=== PATIENT | female | born 1950 | race Caucasian/White ===

== ENCOUNTER 2016-06-25 00:43 | Inpatient (IN) | payer OTHER ==
[~2016-06-25] VITALS: Ht 162.6 cm; Wt 58.9 kg
--- NOTE | 2016-06-26 07:39 | ER ---
ADMIT: 06/25/2016 RM/LOC: 405 [facility] MR#: [id number] [address] [place], [place] [address] JAZZYDONALDHAYLEE Ankit [address] [place] [address] Emergency Room Report SEX: F AGE: 65 : 1950 DATE: 06/25/2016 The patient is a 65-year-old female with past medical history of hypertension, cardiac stents, four, two of them were done two weeks ago in [place], who came to the ER with chief complaint of 3 days of shortness of breath and feeling tired and fatigued and intermittent left and mid anterior chest. The patient states she takes Plavix and aspirin and states the chest pain also was mild-to- moderate, at the moment, is going away. In the ER, the patient was put on monitor, vitals were stable, the patient had received two sublingual nitro, which decreased the pain and resolved it. Blood pressure slightly dropped from 125 systolic to 95 and the patient received small amount of IV normal saline. EKG was negative for any ST or T changes. Chest x-ray did not show any abnormalities. Lab work was positive for troponin I level of 11.7. INR was 1.2. Creatinine was also 0.9. The rest of the lab work was noncontributory. Family Medicine was consulted. The patient was admitted for chest pain/non STEMI. Cardiology Dr. Dupree was contacted and the patient per Cardiology was started on heparin drip and continuation of Plavix and aspirin. Samir Parr MD/ opal JOB #: [id number] CC: Traci Cid MD, Attending Physician Traci Cid MD, Family Physician
--- NOTE | 2016-06-30 08:32 | HP ---
ADMIT: 06/25/2016 RM/LOC: 405 [facility] MR#: [id number] [address] [facility] [address] [place], [place] [address] MICA PURCELL [address] [place] [address] History and Physical SEX: F AGE: 65 : 1950 DATE OF SERVICE: CHIEF COMPLAINT: Shortness of breath and fatigue. HISTORY OF PRESENT ILLNESS: Mica is a 65-year-old female with a history of coronary artery disease, who presented to the Emergency Department overnight last night for "feeling bad." She said she was extremely fatigued and had difficulty even walking. She has had a significant shortness of breath. She has had some chest and back discomfort and has difficulty just getting comfortable. Her past medical history is very significant for coronary artery disease. She had her first CT at the age of 51. She has been doing well since then until about one month ago. In mid May, she took a trip to [place] and said she did not feel well the entire trip. When she got home to [place], she asked her to take her to the hospital. Upon evaluation there, she was told that she had a heart attack and was recommended that she have a heart catheterization. This was performed, I believe on June 10 and she had 2 stents placed. Following that, her symptoms did not really improve. She was discharged, but a few days later re-presented to the Emergency Department complaining of nausea and symptoms. She was found to be in acute congestive heart failure and medications were adjusted. She was placed in a LifeVest and discharged. She drove back to [place] on June 17. She is from here but lives in [place] during the winter. During the trip, she said the LifeVest was very uncomfortable. She said it did alarm 2 times that it was going to fire, but she shut it off. Due to the discomfort of wearing this, she had it removed. She continued to feel very poorly and then yesterday presented to the local Emergency Department here. She gets her primary care in [place] when she is living here in [place]. She is a previous breast cancer survivor as well, but no other medical problems. PAST MEDICAL HISTORY: 1. Coronary artery disease. 2. Congestive heart failure. 3. Ischemic cardiomyopathy with findings of ventricular tachycardia during recent hospitalization and placement a LifeVest. 4. History of breast cancer. 5. Hypertension. 6. Hyperlipidemia. MEDICATIONS: 1. Atorvastatin 80 mg daily. 2. Lasix 20 mg daily. 3. Plavix 75 mg daily. 4. Potassium chloride 10 mEq daily. 5. Metoprolol 50 mg daily. 6. Aspirin 81 mg daily. ALLERGIES: BENADRYL, ERYTHROMYCIN, AND CODEINE. FAMILY HISTORY: Significant for coronary artery disease in her mother. ADMIT: 06/25/2016 RM/LOC: 405 [facility] MR#: [id number] [address] [address] MICA PURCELL [address] [place] [address] History and Physical SEX: F AGE: 65 : 1950 SOCIAL HISTORY: The patient is from [place], but lives 4 months of the year in [place]. She denies tobacco abuse. No alcohol abuse. She is . REVIEW OF SYSTEMS: As per HPI. Others reviewed and negative except for the patient reports decreased urination and is concerned with this given her Lasix use. She also reports a scratchy throat which she thinks is causing some wheezing, but this has been going on for greater than one month. PHYSICAL EXAMINATION: VITAL SIGNS: Currently with temperature 97.6, pulse 101, respiratory rate 16, blood pressure 95/64, and oxygen saturation 96% on room air. GENERAL: The patient is awake, alert, in mild distress due to discomfort as she fidgets in bed. She is otherwise cooperative with exam. HEENT: Within normal limits. HEART: Tachycardic but regular. Unable to appreciate any murmurs. LUNGS: Diminished throughout, but otherwise clear. No crackles or wheezes noted. ABDOMEN: Soft, nontender, and nondistended. Normal bowel sounds. No organomegaly. EXTREMITIES: Warm and dry. No edema. NEUROLOGIC: Cranial nerves II through XII grossly intact. No focal neurologic deficit. LABORATORY DATA: Please see electronic record for full details, but of note, the patient's INR on initial evaluation in the Emergency Department was 11.7. This is currently 10.3. Metabolic panel remarkable for creatinine of 0.9, magnesium 2.0, potassium 4.4. White blood cell count mildly elevated at 11.1 with a hemoglobin of 13.8, and platelets are normal at 3.74. IMAGING: Chest x-ray was obtained in the Emergency Department but has not yet been read by Radiology. EKG shows right bundle branch block with mild tachycardia of 106. ASSESSMENT/PLAN: 1. Chest pain concerning for acute coronary syndrome. Given medical history and elevated troponin, Cardiology has been consulted and she has been placed on heparin drip. Appreciate Cardiology's recommendations. ADMIT: 06/25/2016 RM/LOC: 405 [facility] MR#: [id number] [address] [place] [phone] MICA PURCELL [address] [place] [address] History and Physical SEX: F AGE: 65 : 1950 2. Significant coronary artery disease, status post recent PCI in the past 1 month. We will obtain previous records from her hospital in [place]. 3. Congestive heart failure. Currently she is euvolemic. Appreciate Cardiology's recommendations with this as well. 4. Generalized fatigue, likely secondary to above. We will also check a thyroid to ensure no other contributing comorbidities. 5. Hypertension. This is currently controlled. 6. Hyperlipidemia. We will continue her statin. 7. History of breast cancer. DISPOSITION: The patient requires inpatient cardiac evaluation. We will continue to follow along. Traci Cid MD/ opal JOB #: [id number] CC: Traci Cid, Attending Physician Traci Cid, Family Physician
--- NOTE | 2016-07-01 08:58 | DS ---
ADMIT: 06/25/2016 RM/LOC: 405 [facility] MR#: [id number] 26[address] [facility] [address] [place], [place] [address] RAMANDONALD VILLANUEVAHIE Ankit [address] [facility] [place] [place] [address] General Discharge Summary SEX: F AGE: 65 : 1950 ADMISSION DATE: 06/25/2016 DISCHARGE DATE: 06/25/2016 CONSULTS: Cardiology, Jayden Dupree MD PROCEDURES: None. REASON FOR ADMISSION: The patient was admitted from the emergency department as a city call patient for concern of acute coronary syndrome. Please see H and P for full details. HOSPITAL COURSE: The patient was admitted to telemetry for further evaluation and monitoring of her symptoms. She was kept n.p.o., and serial cardiac enzymes were obtained. Cardiology was consulted and evaluated the patient on the day of admission. She was initiated on heparin drip for concern of acute coronary syndrome. Once Cardiology evaluated the patient. There was significant concern for the severity of her cardiac disease. It was therefore recommended that she be transferred to the [facility] for further evaluation. The patient was stable and transferred on the morning of June 25. Traci Cid MD/ opal JOB #: [id number] CC: Traci Cid MD, Attending Physician Traci Cid MD, Family Physician
--- NOTE | 2016-07-11 14:23 | CO ---
ADMIT: 06/25/2016 RM/LOC: [facility] MR#: [id number] [id number] [address] HAYLEE PURCELL [address] [place] [address] Consultation SEX: F AGE: 65 : 1950 DATE OF CONSULTATION: 06/25/2016 ATTENDING PHYSICIAN: Traci Cid CONSULTING PHYSICIAN: Jayden Dupree MD PRIMARY REFERRING: Traci Cid MD REASON FOR EVALUATION: Elevated troponin. HISTORY OF PRESENT ILLNESS: Haylee is a very nice 65-year-old lady, who is known to me personally and professionally. 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 She does have a history of coronary artery disease with a previous stent to her right coronary artery 14 to 15 years ago in the midst of what I think was an acute coronary syndrome at that time. She has really done well over the past 15 years. She was in [place] this summer. She said she was very active. However at the end of May, she started developing rather severe shortness of breath along with nausea, generally not feeling well, maybe some atypical chest pain. She went to the emergency room there in [place]. After initial evaluation, she was found to have a troponin of 25. She was taken urgently to the cath lab radiological technologist. She was found to have what sounds like in-stent restenosis on the right requiring stenting and she also had stents to the LAD. She has an underlying right bundle-branch block. Her LV function was decreased to 25% to 30% in [place]. She was discharged on a life vest. I think she was discharged on June 12. She came back that same day with ongoing shortness of breath and nausea. I think they treated her with diuresis and they stopped her Brilinta and put her on Plavix because her main symptoms were shortness of breath. Her troponin at that time was 10. She subsequently went home and she has come back to [place]. She said she never really did recover, but over the past two days, she is having this recurrent shortness of breath, ongoing nausea. She has back pain from the Life Vest and generally not doing well. Once again, on her laboratory, her troponin remains elevated at 10. Her MB is 15 with a total CK of 98 and her troponin last night was 11.7. Kidney function is normal. She is not anemic. She is not hypoxic. She has minimal chest discomfort. She denies significant edema. She has not been having palpitations. Her main symptoms continue to be the shortness of breath, nausea, and just generally not feeling well. Her nausea is to the point where she has actually lost about 10 pounds over the past 2 weeks because she has difficulty eating. PAST MEDICAL HISTORY: ALLERGIES: TO CODEINE AND ALOE VERA. CURRENT MEDICATIONS: 1. Atorvastatin 80 daily. 2. Lasix 20 daily. 3. Clopidogrel 75 daily. 4. Potassium 10 mEq daily. ADMIT: 06/25/2016 RM/LOC: [facility] MR#: [id number] [address] [address] HAYLEE PURCELL [address] [place] [id number] Consultation SEX: F AGE: 65 : 1950 5. Metoprolol 50 mg daily. 6. Aspirin 81 daily. ILLNESSES: Include her coronary disease as described above. She has had stents to the right coronary artery and more recently to the repeat stents to the right coronary artery and LAD, history of breast cancer status post lumpectomy and dyslipidemia. She did have nonsustained ventricular tachycardia while she was in [place] and she now has an ischemic cardiomyopathy. PAST SURGICAL HISTORY: Includes two C sections, tonsillectomy, and a lumpectomy of the right breast many years ago. FAMILY HISTORY: Negative for premature coronary disease. Her mother from complications of diabetes. Her father had dementia and kidney cancer. Multiple siblings have hyperlipidemia. SOCIAL HISTORY: She has never smoked. She drinks coffee daily. Uses alcohol on a social basis. She tries to follow a sensible diet, but nothing specific. No history of illicit drug use. She is retired nurse. She is , but in another relationship and has 2 children. REVIEW OF SYSTEMS: GENERAL: She does tire easily and this has been going on for the past 2 weeks. She has recently lost 10 pounds. EYES: She wears reading glasses. ENT: Denies hearing loss or problems with nose, mouth or throat. PULMONARY: Denies cough, sputum production, asthma, emphysema or bronchitis. Denies snoring loudly, wakefulness at night, or fatigue upon awakening. GASTROINTESTINAL: Denies heartburn or difficulty swallowing. No change in bowel habits. Denies dark or bloody stools. No history of ulcers, hiatal hernia, or gallbladder or liver disease. She has had recent nausea and difficulty eating. GENITOURINARY: Denies dysuria, hematuria, nocturia, urinary tract infection, or kidney stones. Denies history of renal insufficiency or failure. MUSCULOSKELETAL: Denies history of arthritis or gout. Denies muscle or joint pains. ENDOCRINE: Denies history of thyroid dysfunction or diabetes. HEMATOLOGIC: Positive for her history of breast cancer. NEUROLOGIC: Denies chronic headaches, dizziness, syncope, stroke, seizures or numbness or tingling. PSYCHIATRIC: Denies history of mental illness or feelings of depression. PHYSICAL EXAMINATION: VITAL SIGNS: Blood pressure is 95/64, pulse is 100, respirations 16. She is afebrile. O2 sats are 96% on room air. SKIN: [place], warm and dry. EYES: Sclerae clear. No xanthelasmas. ENT: Oral mucosa is pink and moist. There is positive JVD. No carotid bruits. ADMIT: 06/25/2016 RM/LOC: [facility] MR#: [id number] [address] [address] HAYLEE PURCELL [facility] [place] [address] Consultation SEX: F AGE: 65 : 1950 CHEST: Respirations are even and unlabored. Lungs are clear to auscultation. HEART: Regular rate and rhythm. Normal S1, S2. There is a gallop noted, but it is regular. No significant murmurs or rubs. ABDOMEN: Soft and nontender. MUSCULOSKELETAL: Gait is normal. EXTREMITIES: Peripheral pulses palpable. No clubbing, cyanosis or edema. PSYCHIATRIC: Alert and oriented. Mood and affect are appropriate. IMAGING DATA: Her EKG shows an underlying right bundle-branch block, mildly tachycardic. I do not see any acute ischemic EKG changes. LABORATORY DATA: Sodium 135, potassium 4.4, creatinine 0.9, BUN 17, troponin is 10.3, CK is 98, MB is 15, INR is 1.2, hemoglobin is 13.8 with a white count of 11.1, and platelet count 374,000. IMPRESSION: 1. Possible acute coronary syndrome/non-ST elevation myocardial infarction. 2. Known coronary artery disease with recent stents to the right coronary artery and LAD. 3. Ischemic cardiomyopathy. 4. Nonsustained ventricular tachycardia. 5. Acute congestive heart failure, systolic. RECOMMENDATIONS: She is markedly symptomatic again. I am not sure she has ever improved since her initial presentation in [place] over two weeks ago. Her troponin remains elevated. I am concerned about a recurrent acute coronary syndrome. It is not clear to me if this is mostly shortness of breath due to heart failure or complicated by possible recurrent acute coronary syndrome. She also had nonsustained VT and her LV function is depressed. She has high risk features. Ultimately, I think it is best if she is transferred to the [facility] for consideration of another coronary angiography. I would be concerned about stent thrombosis. In addition, I am also concerned about heart failure symptoms and needing to optimize her heart failure management. She may well need some LV support. I discussed this with my partners in [place] and they are in agreement to transfer her there for thorough and full evaluation. We will continue with her heparin and beta- venancio. I have not given her Lasix. She will also remain on her dual antiplatelet therapy. Jayden Dupree MD/ opal JOB #: [id number] CC: Traci Cid, Attending Physician Traci Cid, Family Physician
== END 2016-06-25 10:45 | disposition short-term general hospital (02) | DRG 280 ==
LOC: ER 00:43 → 4PCU 02:30
PROVIDERS: ADMIT Family Medicine
DX: I21.4 Non-ST elevation (NSTEMI) myocardial infarction (principal); I50.21 Acute systolic (congestive) heart failure; I47.2 Ventricular tachycardia; I25.10 Atherosclerotic heart disease of native coronary artery without angina pectoris; I25.2 Old myocardial infarction; I25.5 Ischemic cardiomyopathy; I11.0 Hypertensive heart disease with heart failure; E78.5 Hyperlipidemia, unspecified; I45.10 Unspecified right bundle-branch block; Z79.02 Long term (current) use of antithrombotics/antiplatelets; Z95.5 Presence of coronary angioplasty implant and graft; Z85.3 Personal history of malignant neoplasm of breast; Z82.49 Family history of ischemic heart disease and other diseases of the circulatory system; Z79.82 Long term (current) use of aspirin

== ENCOUNTER 2016-07-02 19:25 | Inpatient (IN) | payer OTHER ==
[~2016-07-02] VITALS: Ht 167.6 cm; Wt 59.5 kg
--- NOTE | 2016-07-03 03:28 | ER ---
ADMIT: 07/02/2016 RM/LOC: 427 [facility] MR#: [id number] [address] [facility] [address] [place], [place] [address] ROMAINE PURCELL [address] [place] [address] Emergency Room Report SEX: F AGE: 65 : 1950 DATE: 07/02/2016 CHIEF COMPLAINT: LifeVest alarm. HISTORY OF PRESENT ILLNESS: The patient is a 65-year-old female with ischemic cardiomyopathy, recent non-ST elevated [place] in may 27 status post PCI stent x2 in [place] followed by hospitalization at [place] first of the month, transferred to [facility] for further evaluation. Heart cath showed no significant abnormality with recent stents, did find localized probable viral cardiomyopathy, placed on balloon pump transiently and discharged 2 days ago. Since being home, she has had increased nausea with protracted vomiting today. Denies any hematemesis, fevers, chills, cough, diarrhea, or hematochezia. Does admit to recent UTI, currently on antibiotics. No prior history of GI bleed or transfusions. Transported [facility] by [facility] with no further LifeVest alarms. PAST MEDICAL HISTORY: ILLNESSES: Recent non-ST elevated [place] in May 2016 followed by PCI stent x2 in [place], CHF with blunted EF recently, ventricular tachycardia requiring LifeVest since May 2016, hypertension, hyperlipidemia, breast cancer, hypokalemia, and alcohol abuse. OPERATIONS: Recent heart catheterization in [facility] with no interventions since May 2016 at outside hospital in [place], PCI stent x2, total x4, tonsillectomy, right lumpectomy, and x2. ALLERGIES: CODEINE, ERYTHROMYCIN, AND ALOE VERA. MEDICATIONS: Please see nurse's MAR. 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 Nonsmoker. FAMILY HISTORY: Mother secondary to diabetes. Father secondary to renal cell carcinoma and dementia. Siblings with hyperlipidemia. REVIEW OF SYSTEMS: A 12-point review of systems negative for all other systems, illnesses, or operations except as outlined above. PHYSICAL EXAMINATION: VITAL SIGNS: Temp 98, pulse 110, respirations 14, BP 106/71, SaO2 of 97% on room air, and weight 52.5 kilos. GENERAL: Anxious, moderate distress, nontoxic, nondiaphoretic. HEENT: Normocephalic. No evidence of epistaxis, rhinorrhea, or otorrhea. NECK: Supple without lymphadenopathy or thyromegaly. CHEST: Clear. Breath sounds equal without rales, rhonchi, or wheeze. HEART: Tachycardic, regular without murmur, gallop, or edema. ABDOMEN: Soft, nontender, nondistended without mass or megaly. Bowel sounds hypoactive. ADMIT: 07/02/2016 RM/LOC: 427 [facility] MR#: [id number] [address] [place] [phone] ROMAINE PURCELL [address] [place] [address] Emergency Room Report SEX: F AGE: 65 : 1950 BACK: Erect. No CVA tenderness. RECTAL: Sphincter intact. Hematest negative. EXTREMITIES: No evidence of Homans sign, synovitis, or dermatitis. NEURO: EOMI, PERRLA. No evidence of drift, dysarthria, or ataxia. Gait not assessed. MENTAL STATUS: Alert, oriented, and cooperative without delusions, hallucinations, or abnormal thought content. MEDICAL DECISION MAKING: The patient had no further alarms. Heart rate remained less than 100 with fluid bolus in ED. The patient did receive Zofran 8 mg IV push with no improvement of nausea then received Reglan 5 mg IV push with improvement then GI cocktail with relief of substernal burning. Hemoglobin 11.1 down from 13.8 on June 25. Lactic 2.4, magnesium 1.7, creatinine 1.3, sodium 131, potassium 3.5, troponin 5.080 down from 10. Last week INR 1.26. EKG showed sinus rhythm with ectopic atrial complex right bundle-branch block, unchanged from June 25, 2016. Chest x-ray showed cardiomegaly without failure. Discussed findings and disposition with Dr. Kwan, who agreed and evaluated and wrote orders in department. Notified Dr. Powers of consult, who agrees with plan and will see in morning. DIAGNOSES: 1. Ischemic cardiomyopathy, status post recent non-ST elevated myocardial infarction and percutaneous coronary intervention stent as well as an aortic balloon pump for probable viral cardiomyopathy. 2. Breast cancer status post lumpectomy, chemoradiation remote past. 3. Elevated lactic acid. Screens positive for sepsis and sepsis protocol drawn. RECOMMENDATION: Admit to inpatient PCU for Dr. Kwan and . ADMISSION/DISCHARGE CONDITION: Stable. The patient is a full code. Robbie Capellan MD/ opal JOB #: [id number] CC: Best Kwan MD, Attending Physician Meagan Lu APRN, Family Physician SAYDA Hines MD Isaac J Berg, MD
--- NOTE | 2016-07-05 10:18 | HP ---
ADMIT: 07/02/2016 RM/LOC: 427 [facility] MR#: [id number] [address] [facility] [address] [place], [place] [address] ROMAINE PURCELL [address] [place] [address] History and Physical SEX: F AGE: 65 : 1950 DATE OF SERVICE: CHIEF COMPLAINT: Nausea. HISTORY OF PRESENT ILLNESS: The patient is a 65-year-old female, who has had a rather interesting last couple of months. Has a distant history of coronary artery disease with stent in the right coronary about 14 years ago or so. A couple of months ago started having shortness of breath, overall not feeling well down in [place]. Had non-STEMI. Had in-stent thrombosis. It sounds like from the record that she then had an LAD stent placed. She was in here a week ago. Had overall feelings of not feeling well. Concern is for in-stent thrombosis. Sent down to [facility]. She had repeat left heart catheterization. Intra-aortic balloon pump. Just left the hospital there two days ago. Significant heart failure. She reports an EF of 10%. Has had persistent nausea and just overall not feeling well for the last couple of months. Her nausea is much worse now. Dry heaves and retching frequently. Very poor oral intake. She has lost 10 pounds from her small frame in rather short orders within the last few weeks. No fevers. No chills. Bowel and bladder have otherwise been working okay. She got a UTI while she was in the hospital there and she initially was treated with Cipro, but was resistance so now she is finishing a course of Bactrim. Denies any rashes. Historically, has not been one to really suffer from nausea or vomiting very easily in the past. The patient was brought to the emergency room today due to her LifeVest alarming seven times. She turned it off before it would shock her. Did not ever actually go off. She was having tachycardia at the time. Instructed to come to the ER. PAST MEDICAL HISTORY: 1. Systolic heart failure with an EF of 10%, question viral cardiomyopathy according to the patient. 2. Coronary artery disease, status post stenting. 3. Distant history of breast cancer in her 30s. 4. History of histoplasmosis in her 20s requiring hospitalization. PAST SURGICAL HISTORY: C-sections and tonsillectomy. FAMILY HISTORY: Negative for premature coronary artery disease, but she has got seven siblings all with hyperlipidemia. Mother had diabetes. SOCIAL HISTORY: Nonsmoker. Retired nurse. REVIEW OF SYSTEMS: As per HPI. Otherwise, completely reviewed and negative. MEDICATIONS: She is on: 1. Milrinone drip via left-sided PICC line. 2. Aspirin 81 mg a day. 3. Atorvastatin 80 mg at bedtime. 4. Plavix 75 mg a day. ADMIT: 07/02/2016 RM/LOC: 427 [facility] MR#: [id number] [address] [place] [phone] ROMAINE PURCELL [address] [place] [address] History and Physical SEX: F AGE: 65 : 1950 5. Ivabradine. 6. Metoprolol. 7. Midodrine. 8. Zofran p.r.n. 9. Bactrim. 10.Torsemide. PHYSICAL EXAMINATION: VITAL SIGNS: Blood pressure 113/94, pulse is 101, respiratory rate 20, and O2 saturation 99%. GENERAL: Alert and oriented x3. No acute distress. Somewhat ill appearing. Sallow. Family at bedside. HEENT: Normocephalic and atraumatic. Pupils are equal bilaterally. No icterus. Dry mucous membranes. NECK: No lymphadenopathy. Soft and supple. Trachea midline. LUNGS: Clear to auscultation bilaterally. No wheezes, rales, or rhonchi. HEART: Regular rate and rhythm. No murmurs or rubs. Distant. ABDOMEN: Soft, nontender, and nondistended. Bowel sounds present. EXTREMITIES: No cyanosis or clubbing. She has very faint edema present bilaterally in the lower extremities. MUSCULOSKELETAL: 5/5 strength in all 4 extremities. NEUROLOGICAL: No focal deficits noted. Cranial nerves II through XII grossly intact. SKIN: No rashes noted. With a left-sided PICC line. LABORATORY DATA: Lactic acid 2.4. UA is negative. Procalcitonin is 0.05. Lipase is normal at 121, ALT is 33, AST 29, phos is 3.3, bilirubin 0.5, total protein is 6.9, creatinine 1.3, the baseline is 0.9, and Mag is 1.7. Troponin 5, her troponin a week ago was 10. White count 8.1, hemoglobin 11.1, and platelets 307. Chest x-ray shows no acute process. She has a PICC line in place. EKG shows no acute findings, right bundle-branch block. ASSESSMENT AND PLAN: 1. Intractable nausea and vomiting. 2. Systolic heart failure. 3. Acute kidney injury. ADMIT: 07/02/2016 RM/LOC: 427 [facility] MR#: [id number] [address] [place] [phone] ROMAINE PURCELL [address] [place] [address] History and Physical SEX: F AGE: 65 : 1950 4. Hypovolemia. 5. Recent urinary tract infection. PLAN: At this point in time, we will rehydrate her very gently. She got a liter of fluids already downstairs. We will just run it very slowly over the next day. Her lab work consistent with dehydration as well as exam consistent with hypovolemia. Really unclear regarding intractable nausea and vomiting. She reports that this has been going on for quite some time. Question if this is secondary to her congestive heart failure versus medication versus other. We will give her some scheduled antiemetics. We will have Cardiology see her obviously. Her initial onset was one of overall flu-like illness 6 to 8 weeks ago. Consider infectious etiology. Consider gastric emptying study on Monday. Best Kwan MD/ opal JOB #: [id number] CC: Best Kwan, Attending Physician Meagan Lu, Family Physician
--- NOTE | 2016-07-06 14:08 | CO ---
ADMIT: 07/02/2016 RM/LOC: 427 [facility] MR#: [id number] [address] [facility] [address] [place], [place] [address] ROMAINE PURCELL [address] [place] [address] Consultation SEX: F AGE: 65 : 1950 DATE OF CONSULTATION: 07/03/2016 ATTENDING PHYSICIAN: Best Kwan CONSULTING PHYSICIAN: Jarek Powers MD CHIEF COMPLAINT: Nausea, abdominal pain, fatigue. HISTORY OF PRESENT ILLNESS: The patient is a 65-year-old female, who is well known to us who recently had been in [place]. She had history of previous coronary disease and while in [place], had some shortness of breath and symptoms consistent with acute coronary syndrome. She ended up having a stent to her right coronary artery and an LAD stent. She had not been feeling well and presented back to [facility] with elevated troponins. She was transferred to [place] at [facility] where she had a heart catheterization. It does not sound like she needed intervention at that time, but she did have a balloon pump placed for approximately 24 hours. She was then discharged with a Milrinone drip and was noted to have ejection fraction of approximately 10%. For the last month or longer, she has been having problems with nausea and vomiting. For that reason, she has lost weight and has just not able to eat much or drink much. She states that this occurred even before she was down at the [facility] or placed on any of those medications. Because of these symptoms, she presented to the emergency room and we are now seeing her for further evaluation. She does have a Life Vest in place and her heart rates were in the 160s at times but this was sinus tachycardia due to nausea and dry heaves. This morning, she does not feel better. She has not noticed any recent swelling or chest pain. She denies chest tightness and had no other complaints. PAST MEDICAL HISTORY: Significant for: 1. Coronary artery disease with previous right coronary artery and LAD stenting. 2. Cardiomyopathy, potentially ischemic or mixed etiology with current ejection fraction of 10% and use of a Life Vest. She is also on Milrinone IV. 3. History of breast cancer in her 30s. 4. History of histoplasmosis. 5. History of . 6. Tonsillectomy. ALLERGIES: NONE. FAMILY HISTORY: Significant for several siblings who have hyperlipidemia and a mother with diabetes. 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 HOME MEDICATIONS: 1. Currently she is on a Milrinone infusion. ADMIT: 07/02/2016 RM/LOC: 427 [facility] MR#: [id number] [address] [place] [phone] ROMAINE PURCELL [address] [place] [address] Consultation SEX: F AGE: 65 : 1950 2. Aspirin 81 mg daily. 3. Compazine 10 mg every 8 hours. 4. Lipitor 80 mg at bedtime. 5. Potassium 10 mEq daily. 6. Plavix 75 mg daily. 7. Toprol-XL 12.5 mg daily. 8. Ivabradine 2.5 mg 1/2 tablet b.i.d. 9. Midodrine 5 mg b.i.d. 10.Bactrim DS b.i.d. 11.Torsemide 20 mg daily. PHYSICAL EXAMINATION: VITAL SIGNS: Blood pressure 96/65, heart rate 95, respirations 12, and temperature 98.8 degrees Fahrenheit. GENERAL: The patient ill appearing due to nausea and abdominal discomfort. SKIN: Enhaut, warm and dry. EYES: Sclerae clear. No xanthelasmas. ENT: Oral mucosa is pink and moist. No jugular venous distention or carotid bruits. CHEST: Respirations are even and unlabored. Lungs are clear to auscultation. HEART: Regular rate and rhythm. Normal S1, S2. No murmurs, rubs or gallops. ABDOMEN: Soft and nontender. MUSCULOSKELETAL: Gait is normal. EXTREMITIES: Peripheral pulses palpable. No clubbing, cyanosis. Trace edema. PSYCHIATRIC: Alert and oriented. Mood and affect are appropriate. ASSESSMENT: 1. Nausea and vomiting. 2. Cardiomyopathy with chronic systolic heart failure. Ejection fraction 10%. 3. Coronary artery disease. 4. Hypotension. ADMIT: 07/02/2016 RM/LOC: 427 [facility] MR#: [id number] [address] [phone] ROMAINE PURCELL [address] [place] [address] Consultation SEX: F AGE: 65 : 1950 PLAN: It is unclear to me at the moment as to the cause of her symptoms. While she was in [place] and had a balloon pump in place, she did not feel any better with her nausea and vomiting which makes me think that this is not due to heart failure. Her volume status also looks pretty good and does not appear that she is in overt heart failure. My plan at the moment would be to discontinue all of her nonessential medications and continue her aspirin and Plavix. She is going to have an abdominal workup tomorrow and ultimately if no answer is found, we may consider looking for mesenteric ischemia, although her symptoms seem to be all the time and not just related to food. We will decide further treatment as we go. Jarek Powers MD/ opal JOB #: [id number] CC: Best J Kwan, Attending Physician Meagan Lu, Family Physician Best Kwan MD
--- NOTE | 2016-07-11 22:37 | DS ---
ADMIT: 07/02/2016 RM/LOC: [facility] MR#: [id number] [id number] [place], [place] [address] ROMAINE PURCELL [facility] [place] [address] Discharge Summary SEX: F AGE: 65 : 1950 ADMISSION DATE: 07/02/2016 DISCHARGE DATE: 07/04/2016 FINAL DIAGNOSES: 1. Acute systolic heart failure exacerbation. 2. Intractable nausea and vomiting. 3. Viral cardiomyopathy, severe. REASON FOR ADMISSION: The patient is a 65-year-old female, who presented to the emergency room with intractable nausea, vomiting. Some dehydration. Admitted for further stabilization. HOSPITAL COURSE: Patient given gentle rehydration. Continued to have severe nausea, vomiting. Worsened CHF type symptoms. Ultimately Cardiology discussed her case with outside heart failure specialist and plan was for transfer. Her arrangements were made. Please see full progress notes for details. Best Kwan MD/ rajiv JOB #: [id number] CC: Best Kwan MD, Attending Physician Meagan Lu APRN, Family Physician
== END 2016-07-04 18:20 | disposition short-term general hospital (02) | DRG 391 ==
LOC: ER 19:25 → 4PCU 21:40
PROVIDERS: ADMIT Internal Medicine
DX: R11.2 Nausea with vomiting, unspecified (principal); I50.23 Acute on chronic systolic (congestive) heart failure; I47.2 Ventricular tachycardia; N17.9 Acute kidney failure, unspecified; I11.0 Hypertensive heart disease with heart failure; I95.9 Hypotension, unspecified; N39.0 Urinary tract infection, site not specified; B33.24 Viral cardiomyopathy; F41.9 Anxiety disorder, unspecified; D64.9 Anemia, unspecified; R73.9 Hyperglycemia, unspecified; I25.5 Ischemic cardiomyopathy; E86.1 Hypovolemia; E86.0 Dehydration; E78.5 Hyperlipidemia, unspecified; Z85.3 Personal history of malignant neoplasm of breast; I25.2 Old myocardial infarction; Z95.5 Presence of coronary angioplasty implant and graft; Z79.82 Long term (current) use of aspirin; Z79.02 Long term (current) use of antithrombotics/antiplatelets